=== PATIENT | female | born 1965 | race Caucasian/White ===

== ENCOUNTER 2016-08-03 17:20 | Emergency (ER) | payer BC ==
[2016-08-03 19:15] LABS: RED BLOOD COUNT 5.06 M/UL (4.00-5.10); WHITE BLOOD COUNT 4.7 K/UL (4.5-11.0)
[2016-08-03 19:19] LABS: BUN/CREATININE RATIO 28 (0-10)
== END 2016-08-03 23:46 | disposition home or self-care (01) ==
LOC: ER1 17:20
PROVIDERS: Emergency Medicine
DX: N30.01 Acute cystitis with hematuria (principal); K80.20 Calculus of gallbladder without cholecystitis without obstruction; N83.201 Unspecified ovarian cyst, right side; N83.202 Unspecified ovarian cyst, left side; E87.6 Hypokalemia
CPT/HCPCS: 36415; 80053; 81001; 83605; 83690; 84703; 85025; 87086; 96365; 96366; 96375; 96376; 99284; J1956; J2270; J2405; J7050; Q9962

== ENCOUNTER → 2020-06-20 | Outpatient (CLI) | payer OTHER ==
[~2020-06-20] MED LIST: AZELASTINE; AZELASTINE205.5 MCG/; BREZTRI AEROS10.7 GM INH; COLACE 100MG C100 MG PO; FLONASE 0.05% N16 GM; FLUTICASONE; HYDROCHLOROTHIA25 MG PO; HYDROCODON-ACE1 EAC6 PO; IBUPROFEN600 MG PO; MULTI-VITAMIN1 EAC1 PO; OMEPRAZOLE40 MG PO; PROBIOTIC1 EAC1 PO; SINGULAIR10 MG PO; VITAMIN D350 MCG PO; XYZAL5 MG PO
[2020-06-20 10:39] LABS: HEMOGLOBIN 14.6 gm/dl (12.3-15.3); RED BLOOD COUNT 4.9 M/UL (4.00-5.10); WHITE BLOOD COUNT 5.5 K/UL (4.5-11.0)
[2020-06-20 11:00] LABS: BUN/CREATININE RATIO 17 (0-10)
== END ==
LOC: OPSV2 09:00
PROVIDERS: Obstetrics & Gynecology
DX: Z01.818 Encounter for other preprocedural examination (principal); D21.9 Benign neoplasm of connective and other soft tissue, unspecified; R00.0 Tachycardia, unspecified; I10 Essential (primary) hypertension
CPT/HCPCS: 36415; 80053; 81001; 85025; 93005

== ENCOUNTER 2020-06-27 06:21 | Day surgery (SDC) | payer OTHER ==
[~2020-06-27] VITALS: Ht 160 cm; Wt 88.0 kg
[~2020-06-27 06:21] MED LIST changes: -AZELASTINE205.5 MCG/; -BREZTRI AEROS10.7 GM INH; -COLACE 100MG C100 MG PO; -FLONASE 0.05% N16 GM; -HYDROCODON-ACE1 EAC6 PO; -IBUPROFEN600 MG PO; -MULTI-VITAMIN1 EAC1 PO; -VITAMIN D350 MCG PO
[2020-06-27] MEDS ORDERED: BREZTRI AEROS10.7 GM INH (07:21)
[2020-06-27] MEDS ORDERED: COLACE 100MG C100 MG PO (07:39)
[2020-06-27] MEDS ORDERED: IBUPROFEN600 MG PO (07:39)
[2020-06-27] MEDS ORDERED: HYDROCODON-ACE1 EAC6 PO (07:39)
[2020-06-27] MEDS ORDERED: AZELASTINE205.5 MCG/ (16:14)
[2020-06-27] MEDS ORDERED: FLONASE 0.05% N16 GM (16:15)
[2020-06-27] MEDS ORDERED: VITAMIN D350 MCG PO (16:21)
[2020-06-27] MEDS ORDERED: MULTI-VITAMIN1 EAC1 PO (16:21)
[2020-06-28 03:53] LABS: HEMOGLOBIN 11.2 gm/dl (12.3-15.3)
== END 2020-06-28 11:20 | disposition home or self-care (01) ==
LOC: OR 06:21 → M/S 12:00 → OR 06-28 11:20
PROVIDERS: Obstetrics & Gynecology
DX: D25.9 Leiomyoma of uterus, unspecified (principal); N80.0 Endometriosis of uterus; D28.2 Benign neoplasm of uterine tubes and ligaments; K66.0 Peritoneal adhesions (postprocedural) (postinfection); N83.202 Unspecified ovarian cyst, left side; N83.201 Unspecified ovarian cyst, right side; G43.909 Migraine, unspecified, not intractable, without status migrainosus; D64.9 Anemia, unspecified; I10 Essential (primary) hypertension; R00.0 Tachycardia, unspecified; K21.9 Gastro-esophageal reflux disease without esophagitis; Z91.018 Allergy to other foods; Z91.010 Allergy to peanuts; Z79.899 Other long term (current) drug therapy
CPT/HCPCS: 36415; 74018; 84703; 85014; 85018; J0690; J1100; J1644; J2001; J2250; J2270; J2405; J2550; J2704; J2710; J2765; J2795; J3010; J7120

== ENCOUNTER 2020-11-19 17:00 | Inpatient (IN) | payer OTHER ==
[~2020-11-19] VITALS: Ht 160 cm; Wt 92.5 kg
[~2020-11-19 17:00] MED LIST changes: +AZELASTINE205.5 MCG/; +COLACE 100MG C100 MG PO; +FLONASE 0.05% N16 GM; +HYDROCODON-ACE1 EAC6 PO; +IBUPROFEN600 MG PO; +MULTI-VITAMIN1 EAC1 PO
[2020-11-19 18:47] LABS: HEMOGLOBIN 13.9 gm/dl (12.3-15.3); RED BLOOD COUNT 5.02 M/UL (4.00-5.10)
[2020-11-19 19:16] LABS: BUN/CREATININE RATIO 16 (0-10)
[2020-11-20 00:36] LABS: HEMOGLOBIN 12.2 gm/dl (12.3-15.3); RED BLOOD COUNT 4.4 M/UL (4.00-5.10); WHITE BLOOD COUNT 3.2 K/UL (4.5-11.0)
[2020-11-20 04:04] LABS: BUN/CREATININE RATIO 21 (0-10)
[2020-11-20] MEDS ORDERED: BREZTRI AEROS10.7 GM INH (07:21)
[2020-11-20] MEDS ORDERED: ALBUTEROL0.63 MG/3 INH (10:45)
[2020-11-20] MEDS ORDERED: HYDROCHLOROTHIA25 MG PO (10:46)
[2020-11-20] MEDS ORDERED: POTASSIUM CHLO20 ME1 PO (10:46)
[2020-11-20] MEDS ORDERED: OMEPRAZOLE40 MG PO (10:46)
[2020-11-20] MEDS ORDERED: MONTELUKAST SOD10 MG PO (10:47)
[2020-11-20] MEDS ORDERED: NASACORT16.9 ML (10:47)
[2020-11-20] MEDS ORDERED: MULTIVITAMIN1 EACH PO (10:54)
[2020-11-20] MEDS ORDERED: VITAMIN D325 MC6 PO (16:21)
[2020-11-21 03:12] LABS: HEMOGLOBIN 11.5 gm/dl (12.3-15.3); RED BLOOD COUNT 4.2 M/UL (4.00-5.10)
[2020-11-21 03:13] LABS: WHITE BLOOD COUNT 2.3 K/UL (4.5-11.0)
--- NOTE | 2020-11-21 05:23 | NUR ---
AT 0420, PRIMARY RN ASKED RESPIRATORY THERAPIST TO PLACE PT ON HFNC D/T O2 SAT 87-88 WITH REST AT 4.5 L/MIN NC. PT TOLERATED 10 L/MIN HFNC WELL UNTIL PT NEEDED TO USE BSC. PT NOW SATTING 90-91% ON 12 L/MIN HFNC. WCTM. PT ALSO GIVEN INCENTIVE SPIROMETER WITH INSTRUCTIONS ON HOW TO USE AND ADVISED TO LAY IN PRONE POSITION MUCH TOLERATED. WCTM
[2020-11-22 06:01] LABS: HEMOGLOBIN 12.2 gm/dl (12.3-15.3); RED BLOOD COUNT 4.4 M/UL (4.00-5.10); WHITE BLOOD COUNT 2.7 K/UL (4.5-11.0)
[2020-11-22 06:37] LABS: BUN/CREATININE RATIO 28 (0-10)
[2020-11-23 05:42] LABS: HEMOGLOBIN 12.7 gm/dl (12.3-15.3); RED BLOOD COUNT 4.66 M/UL (4.00-5.10); WHITE BLOOD COUNT 2.6 K/UL (4.5-11.0)
[2020-11-23 06:00] LABS: BUN/CREATININE RATIO 31 (0-10)
[2020-11-24 05:33] LABS: HEMOGLOBIN 12.5 gm/dl (12.3-15.3); RED BLOOD COUNT 4.49 M/UL (4.00-5.10)
[2020-11-24 05:34] LABS: WHITE BLOOD COUNT 5.1 K/UL (4.5-11.0)
[2020-11-24 06:05] LABS: BUN/CREATININE RATIO 39 (0-10)
[2020-11-25 05:53] LABS: HEMOGLOBIN 12.4 gm/dl (12.3-15.3); RED BLOOD COUNT 4.47 M/UL (4.00-5.10)
[2020-11-25 06:21] LABS: BUN/CREATININE RATIO 36 (0-10)
[2020-11-25 06:27] LABS: WHITE BLOOD COUNT 8.3 K/UL (4.5-11.0)
[2020-11-26 04:54] LABS: HEMOGLOBIN 12.2 gm/dl (12.3-15.3); RED BLOOD COUNT 4.44 M/UL (4.00-5.10); WHITE BLOOD COUNT 9.1 K/UL (4.5-11.0)
[2020-11-26 05:32] LABS: BUN/CREATININE RATIO 47 (0-10)
[2020-11-27 05:54] LABS: RED BLOOD COUNT 4.38 M/UL (4.00-5.10); WHITE BLOOD COUNT 9.6 K/UL (4.5-11.0)
[2020-11-27 06:13] LABS: BUN/CREATININE RATIO 51 (0-10)
[2020-11-28 04:54] LABS: HEMOGLOBIN 12.3 gm/dl (12.3-15.3); RED BLOOD COUNT 4.43 M/UL (4.00-5.10)
[2020-11-28 04:59] LABS: WHITE BLOOD COUNT 12.1 K/UL (4.5-11.0)
[2020-11-28 05:20] LABS: BUN/CREATININE RATIO 49 (0-10)
[2020-11-29 04:12] LABS: HEMOGLOBIN 12.5 gm/dl (12.3-15.3); RED BLOOD COUNT 4.57 M/UL (4.00-5.10)
[2020-11-29 04:14] LABS: WHITE BLOOD COUNT 15.5 K/UL (4.5-11.0)
[2020-11-29 04:26] LABS: BUN/CREATININE RATIO 45 (0-10)
[2020-11-30 05:15] LABS: HEMOGLOBIN 12.6 gm/dl (12.3-15.3); RED BLOOD COUNT 4.59 M/UL (4.00-5.10); WHITE BLOOD COUNT 18.3 K/UL (4.5-11.0)
[2020-11-30 05:37] LABS: BUN/CREATININE RATIO 39 (0-10)
--- NOTE | 2020-11-30 20:49 | NUR ---
1850: PATIENT CALLED THIS NURSE IN THE ROOM AND REQUESTED SOMETHING TO EAT AND TO BE PLACED ON AIRVO. PATIENT BEGAN DESATURATING BUT STILL REQUESTED NOT TO BE PLACED BACK ON BIPAP. THIS NURSE PLACED 100% NON-REBREATHER ON TOP OF THE AIRVO. OXYGEN SATURATIONS STILL REMAINED LOW SO PATIENT PLACED BACK ON BIPAP. OXYGEN SATURATION 85% ON 100% BIPAP 1905: DR. CASTAÑEDA NOTIFED OF PATIENT CONDITION 1925: MD AT [facility]; 20MG OF ETOMIDATE ADMINISTERED PER MD ORDER 192: 50 MG OF ZACH ADMINISTERED PER MD ORDER 1938: PATIENT INTUBATED; 7.5 ET TUBE, 23 @ TEETH, VENT SETTINGS AC 28, TV 480, FIO2 100%, PEEP 14 1942: DIPRIVAN STARTED AT 25MCG/KG/MIN PER MD ORDER 1945: ZEMURON @ 5MG/ML 2027: PATIENT PRONED
[2020-12-01 09:17] LABS: HEMOGLOBIN 11.1 gm/dl (12.3-15.3)
[2020-12-01 09:20] LABS: RED BLOOD COUNT 3.97 M/UL (4.00-5.10); WHITE BLOOD COUNT 24.8 K/UL (4.5-11.0)
[2020-12-01 17:47] LABS: HEMOGLOBIN 11.5 gm/dl (12.3-15.3); RED BLOOD COUNT 4.12 M/UL (4.00-5.10); WHITE BLOOD COUNT 24.9 K/UL (4.5-11.0)
--- NOTE | 2020-12-01 19:44 | NUR ---
RECEIVED CRITICAL TROPONIN FROM LAB OF 36.[address] BARROSO OF RESULTS AT 1701 NEW ORDERS RECEIVED AND PLACED IN [facility]. AT [address]19 DR. BARROSO NOTIFIED OF TACHYCARDIA AND NEW ORDERS RECEIVED. AT 1639 DR. GATICA WAS CALLED AND MESSAGE LEFT FOR NEW CONSULT
[2020-12-02 06:55] LABS: HEMOGLOBIN 10.6 gm/dl (12.3-15.3); RED BLOOD COUNT 3.84 M/UL (4.00-5.10); WHITE BLOOD COUNT 26.1 K/UL (4.5-11.0)
--- NOTE | 2020-12-02 10:34 | NUR ---
[address] SMALL OF DECREASING TROPONIN.
[2020-12-03 09:06] LABS: HEMOGLOBIN 10.2 gm/dl (12.3-15.3); RED BLOOD COUNT 3.64 M/UL (4.00-5.10); WHITE BLOOD COUNT 24.8 K/UL (4.5-11.0)
[2020-12-03 13:44] LABS: HEMOGLOBIN 9.5 gm/dl (12.3-15.3); RED BLOOD COUNT 3.34 M/UL (4.00-5.10); WHITE BLOOD COUNT 22.5 K/UL (4.5-11.0)
--- NOTE | 2020-12-03 13:57 | NUR ---
AT [address]150 DR. SMALL NOTIFIED OF HEMATURIA AND ORDER TO HOLD HEPARIN DRIP RECEIVED.
[2020-12-04 03:33] LABS: RED BLOOD COUNT 2.91 M/UL (4.00-5.10); WHITE BLOOD COUNT 14.1 K/UL (4.5-11.0)
[2020-12-04 09:52] LABS: HEMOGLOBIN 8.2 gm/dl (12.3-15.3); RED BLOOD COUNT 2.96 M/UL (4.00-5.10); WHITE BLOOD COUNT 12.8 K/UL (4.5-11.0)
[2020-12-05 09:56] LABS: RED BLOOD COUNT 2.84 M/UL (4.00-5.10); WHITE BLOOD COUNT 11.4 K/UL (4.5-11.0)
[2020-12-06 05:13] LABS: HEMOGLOBIN 8.3 gm/dl (12.3-15.3); RED BLOOD COUNT 2.92 M/UL (4.00-5.10)
[2020-12-06 05:19] LABS: WHITE BLOOD COUNT 14.9 K/UL (4.5-11.0)
[2020-12-07 03:56] LABS: RED BLOOD COUNT 2.84 M/UL (4.00-5.10); WHITE BLOOD COUNT 13.8 K/UL (4.5-11.0)
[2020-12-08 05:33] LABS: HEMOGLOBIN 7.1 gm/dl (12.3-15.3); WHITE BLOOD COUNT 11.7 K/UL (4.5-11.0)
[2020-12-08 05:34] LABS: RED BLOOD COUNT 2.51 M/UL (4.00-5.10)
[2020-12-08 15:10] LABS: HEPARIN INDUCED PLATELET AB 0.151 OD (0.000-0.400)
[2020-12-08 20:10] LABS: ADAMTS13 ACTIVITY 59.4 % (>66.8)
[2020-12-09 05:51] LABS: WHITE BLOOD COUNT 13.2 K/UL (4.5-11.0)
[2020-12-09 06:53] LABS: RED BLOOD COUNT 2.78 M/UL (4.00-5.10)
[2020-12-10 04:52] LABS: HEMOGLOBIN 7.5 gm/dl (12.3-15.3); RED BLOOD COUNT 2.69 M/UL (4.00-5.10); WHITE BLOOD COUNT 16.1 K/UL (4.5-11.0)
[2020-12-10 07:11] LABS: HBSAG SCREEN Negative (Negative); HEP A AB, IGM Negative (Negative); HEP B CORE AB, IGM Negative (Negative); HEP C VIRUS AB <0.1 (0.0-0.9)
[2020-12-10 15:09] LABS: HEMOGLOBIN 7.8 gm/dl (12.3-15.3)
[2020-12-11 05:38] LABS: HEMOGLOBIN 7.1 gm/dl (12.3-15.3); RED BLOOD COUNT 2.45 M/UL (4.00-5.10); WHITE BLOOD COUNT 12.8 K/UL (4.5-11.0)
[2020-12-12 05:43] LABS: WHITE BLOOD COUNT 12.9 K/UL (4.5-11.0)
[2020-12-12 05:48] LABS: RED BLOOD COUNT 2.88 M/UL (4.00-5.10)
[2020-12-13 05:46] LABS: RED BLOOD COUNT 2.81 M/UL (4.00-5.10); WHITE BLOOD COUNT 12.7 K/UL (4.5-11.0)
--- NOTE | 2020-12-13 05:59 | NUR ---
12/12/20..2230: DR. BOJORQUEZ ON FLOOR, SPOKE ABOUT PT RESIDUAL, INFORMED MD OF DARK COFFEE GROUND RESIDUAL AND HOOKED TO SUCTION AND TURNED TO BRIGHT RED BLOOD. MD ADVISED TO KEEP TUBE FEED OFF AT THIS TIME AND TO NOT KEEP PT HOOKED TO SUCTION. MD ADVISED TO MAKE SURE PT HAS PROTONIX BID ON APR (SEE MAR)
[2020-12-14 05:31] LABS: HEMOGLOBIN 7.3 gm/dl (12.3-15.3); RED BLOOD COUNT 2.66 M/UL (4.00-5.10); WHITE BLOOD COUNT 11.5 K/UL (4.5-11.0)
--- NOTE | 2020-12-14 19:20 | NUR ---
AT [address] DR. BOJORQUEZ ON THE FLOOR, SPOKE TO DR. BOJORQUEZ IN REGARDS TO PT RECEIVING HEPARIN PER ORDER ON APR, SPOKE ABOUT PT PLATELET COUNTS AT 79, ULCER PT RECENTLY WAS DIAGNOSED WITH, PT BEING IN DIC AND THE COFFEE GROUND BLOOD TINGED CONTENT BEING SUCTIONED FROM PTS OG. DR. BOJORQUEZ ADVISED TO GIVE THE HEPARIN PER ORDER ON APR PT WAS DIAGNOSED LAST WEEK WITH TWO DVTS IN LOWER EXTS, BENEFITS OUTWAYED THE RISKS.
[2020-12-15 04:12] LABS: HEMOGLOBIN 7.9 gm/dl (12.3-15.3); RED BLOOD COUNT 2.91 M/UL (4.00-5.10); WHITE BLOOD COUNT 9.7 K/UL (4.5-11.0)
[2020-12-16 05:45] LABS: HEMOGLOBIN 7.1 gm/dl (12.3-15.3)
[2020-12-16 05:46] LABS: RED BLOOD COUNT 2.54 M/UL (4.00-5.10); WHITE BLOOD COUNT 12.7 K/UL (4.5-11.0)
[2020-12-16 08:11] LABS: VITAMIN D, 25-HYDROXY 14.7 ng/mL (30.0-100.0)
[2020-12-17 05:28] LABS: RED BLOOD COUNT 2.7 M/UL (4.00-5.10)
[2020-12-17 05:32] LABS: WHITE BLOOD COUNT 16.5 K/UL (4.5-11.0)
[2020-12-18 05:19] LABS: HEMOGLOBIN 7.9 gm/dl (12.3-15.3); RED BLOOD COUNT 2.69 M/UL (4.00-5.10); WHITE BLOOD COUNT 14.4 K/UL (4.5-11.0)
[2020-12-19 03:40] LABS: ACINETOBACTER BAUMANNII Not Detected (Negative); CANDIDA ALBICANS Not Detected (Negative); CANDIDA KRUSEI Not Detected (Negative); CANDIDA TROPICALIS Not Detected (Negative); ESCHERICHIA COLI Not Detected (Negative); HAEMOPHILUS INFLUENZAE Not Detected (Negative); KLEBSIELLA OXYTOCA Not Detected (Negative); KLEBSIELLA PNEUMONIAE Not Detected (Negative); KPC-CARBAPENEM-RESISTANCE GENE Not Detected (Negative); PROTEUS Not Detected (Negative); PSEUDOMONAS AERUGINOSA Not Detected (Negative); SERRATIA MARCESANS Not Detected (Negative); STAPHYLOCOCCUS Not Detected (Negative); STAPHYLOCOCCUS AUREUS Not Detected (Negative); STREP AGALACTIAE (GROUP B) Not Detected (Negative); STREP PYOGENES (GROUP A) Not Detected (Negative); STREPTOCOCCUS Not Detected (Negative); mecA (METHICILLIN RESIST GENE Not Detected (Negative); vanA/B (VANCOMYCIN RESIST GENE Not Detected (Negative)
[2020-12-19 04:56] LABS: ENTEROCOCCUS DETECTED (Negative)
[2020-12-19 08:25] LABS: HEMOGLOBIN 7.2 gm/dl (12.3-15.3); RED BLOOD COUNT 2.56 M/UL (4.00-5.10); WHITE BLOOD COUNT 17.5 K/UL (4.5-11.0)
[2020-12-20 05:28] LABS: HEMOGLOBIN 7.8 gm/dl (12.3-15.3); RED BLOOD COUNT 2.75 M/UL (4.00-5.10); WHITE BLOOD COUNT 16.5 K/UL (4.5-11.0)
--- NOTE | 2020-12-20 13:33 | NUR ---
DR. SMALL NOTIFIED ABOUT POTASSIUM OF 3.3. HE TOLD ME NOT TO REPLACE THE POTASSIUM.
--- NOTE | 2020-12-20 14:52 | NUR ---
DISCUSSED DIETARY NEEDS WITH THE DIETITIAN AND EXPLAINED THE REASON FOR THE CURRENT HOLD ON TUBE FEEDING. DR. SMALL AND DR. LESTER HAS BEEN NOTIFIED OF THE NEED FOR TUBE FEEDING AND THEY BOTH AGREED TO START NEPHRO AT 10 ML/HR TO GIVE NUTRITION AND TO CONTINUE WITH OUR INTERVENTIONS FOR THE CONSTIPATION
[2020-12-20 16:29] LABS: RED BLOOD COUNT 2.36 M/UL (4.00-5.10); WHITE BLOOD COUNT 11.4 K/UL (4.5-11.0)
[2020-12-20 16:32] LABS: HEMOGLOBIN 6.8 gm/dl (12.3-15.3)
[2020-12-21 02:32] LABS: HEMOGLOBIN 8.2 gm/dl (12.3-15.3); WHITE BLOOD COUNT 9.7 K/UL (4.5-11.0)
[2020-12-21 02:42] LABS: RED BLOOD COUNT 2.83 M/UL (4.00-5.10)
[2020-12-21 08:31] LABS: HEMOGLOBIN 7.6 gm/dl (12.3-15.3); RED BLOOD COUNT 2.66 M/UL (4.00-5.10); WHITE BLOOD COUNT 8.9 K/UL (4.5-11.0)
--- NOTE | 2020-12-21 12:07 | NUR ---
YVETTE PLACED TO CONNECT TO INTERMITTEN LOW WALL SUCTION PER DR. Cruz
[2020-12-21 13:52] LABS: RED BLOOD COUNT 2.76 M/UL (4.00-5.10)
[2020-12-21 17:51] LABS: HEMOGLOBIN 8.3 gm/dl (12.3-15.3); RED BLOOD COUNT 2.9 M/UL (4.00-5.10); WHITE BLOOD COUNT 9.9 K/UL (4.5-11.0)
[2020-12-22 04:36] LABS: HEMOGLOBIN 8.1 gm/dl (12.3-15.3); RED BLOOD COUNT 2.8 M/UL (4.00-5.10); WHITE BLOOD COUNT 8.4 K/UL (4.5-11.0)
--- NOTE | 2020-12-22 11:58 | NUR ---
DR. MONTOYA ORDERS NEPHRO TUBE FEED AT 10 ML/HR
[2020-12-23 05:23] LABS: HEMOGLOBIN 8.5 gm/dl (12.3-15.3); RED BLOOD COUNT 2.94 M/UL (4.00-5.10)
[2020-12-23 05:33] LABS: WHITE BLOOD COUNT 11.3 K/UL (4.5-11.0)
[2020-12-24 07:48] LABS: HEMOGLOBIN 8.3 gm/dl (12.3-15.3); RED BLOOD COUNT 2.92 M/UL (4.00-5.10)
[2020-12-24 07:52] LABS: WHITE BLOOD COUNT 15.2 K/UL (4.5-11.0)
[2020-12-25 05:00] LABS: RED BLOOD COUNT 2.76 M/UL (4.00-5.10); WHITE BLOOD COUNT 11.4 K/UL (4.5-11.0)
[2020-12-26 04:47] LABS: HEMOGLOBIN 7.7 gm/dl (12.3-15.3); RED BLOOD COUNT 2.63 M/UL (4.00-5.10); WHITE BLOOD COUNT 11.6 K/UL (4.5-11.0)
--- NOTE | 2020-12-26 08:34 | NUR ---
PT VOIDED X1 POST LAINEZ REMOVAL.
[2020-12-26 15:56] LABS: HEMOGLOBIN 12.1 gm/dl (12.3-15.3); RED BLOOD COUNT 3.91 M/UL (4.00-5.10); WHITE BLOOD COUNT 15.9 K/UL (4.5-11.0)
[2020-12-27 05:26] LABS: HEMOGLOBIN 7.8 gm/dl (12.3-15.3); RED BLOOD COUNT 2.72 M/UL (4.00-5.10); WHITE BLOOD COUNT 15.5 K/UL (4.5-11.0)
--- NOTE | 2020-12-27 13:17 | NUR ---
Pt went to OR at approximately 1130, accompanied by OR staff. pt returned at approximately 1230. Bedside report recieved from Dr. Allred. Per Dr. Allred, pt had permacath placed, ok to pull temporary HD cath and restart TF as ordered.
--- NOTE | 2020-12-27 17:39 | NUR ---
PER MD REQUEST TEMPORARY HD CATH REMOVED. PRESSURE HELD FOR 5 MINUTES, GAUZE DRESSING AND TAPE APPLIED. NO HEMATOMA NOTED AT THIS TIME. NO BLEEDING NOTED AT THIS TIME. PT TOLERATED WELL. DRESSING ON NEW PERMACATH CHANGED PER MD REQUEST
[2020-12-28 05:28] LABS: HEMOGLOBIN 8.2 gm/dl (12.3-15.3); RED BLOOD COUNT 2.84 M/UL (4.00-5.10)
[2020-12-28 05:30] LABS: WHITE BLOOD COUNT 22.9 K/UL (4.5-11.0)
[2020-12-29 05:21] LABS: HEMOGLOBIN 7.4 gm/dl (12.3-15.3); RED BLOOD COUNT 2.57 M/UL (4.00-5.10); WHITE BLOOD COUNT 17.4 K/UL (4.5-11.0)
--- NOTE | 2020-12-30 02:24 | NUR ---
0130-PATIENT BREATHING HEAVY, O2 SAT DROPPED INTO 80'S. NOTIFIED RESPIRATORY. PATIENT TRACH SUCTIONED AND PLACED BACK ON TRACH COLLAR. PATIENT O2 SAT 92%
--- NOTE | 2020-12-30 04:13 | NUR ---
0330-PATIENT DESAT 88% RESPIRATORY NOTIFIED. PATIENT ON TRACH COLLAR. RESPIRATORY LAVAGED PATIENT AND PLACED HER ON VENT SPONTEOUS PRESSURE CONTROL. PATIENT SAT 94%. WCM.
[2020-12-30 05:15] LABS: HEMOGLOBIN 7.3 gm/dl (12.3-15.3); RED BLOOD COUNT 2.48 M/UL (4.00-5.10)
[2020-12-30 05:21] LABS: WHITE BLOOD COUNT 26.8 K/UL (4.5-11.0)
--- NOTE | 2020-12-30 08:26 | NUR ---
DR. SMALL NOTIFED OF ABG RESULTS. ODERED 1 AMP OF BICARB AND PLACED HER BACK ON ASSIST CONTROL VENTILATOR SETTING.
[2020-12-31 04:50] LABS: RED BLOOD COUNT 2.23 M/UL (4.00-5.10); WHITE BLOOD COUNT 15.3 K/UL (4.5-11.0)
[2020-12-31 04:51] LABS: HEMOGLOBIN 6.2 gm/dl (12.3-15.3)
[2020-12-31 18:43] LABS: HEMOGLOBIN 6.1 gm/dl (12.3-15.3)
== END 2020-12-31 22:41 | DRG 4 ==
LOC: ER1 17:00 → CDU 23:05 → CCU 23:05 → M/S 23:05 → CCU 11-22 20:20
PROVIDERS: Internal Medicine; Internal Medicine Nephrology; Internal Medicine Pulmonary Disease; Physician Assistant; Student in an Organized Health Care Education/Training Program; Surgery; ADMIT Internal Medicine
PROC: XW033E5 Introduction of Remdesivir Anti-infective into Peripheral Vein, Percutaneous Approach, New Technology Group 5 (ICD-10-PCS; 2020-11-19)
PROC: 3E0333Z Introduction of Anti-inflammatory into Peripheral Vein, Percutaneous Approach (ICD-10-PCS; 2020-11-19)
PROC: 8E0ZXY6 Isolation (ICD-10-PCS; 2020-11-19)
PROC: XW033H5 Introduction of Tocilizumab into Peripheral Vein, Percutaneous Approach, New Technology Group 5 (ICD-10-PCS; 2020-11-20)
PROC: 5A09557 Assistance with Respiratory Ventilation, Greater than 96 Consecutive Hours, Continuous Positive Airway Pressure (ICD-10-PCS; 2020-11-22)
PROC: 5A1955Z Respiratory Ventilation, Greater than 96 Consecutive Hours (ICD-10-PCS; 2020-11-30)
PROC: 0BH18EZ Insertion of Endotracheal Airway into Trachea, Via Natural or Artificial Opening Endoscopic (ICD-10-PCS; 2020-11-30)
PROC: 3E033XZ Introduction of Vasopressor into Peripheral Vein, Percutaneous Approach (ICD-10-PCS; 2020-11-30)
PROC: 0DH67UZ Insertion of Feeding Device into Stomach, Via Natural or Artificial Opening (ICD-10-PCS; 2020-12-02)
PROC: 3E0G76Z Introduction of Nutritional Substance into Upper GI, Via Natural or Artificial Opening (ICD-10-PCS; 2020-12-02)
PROC: 30233N1 Transfusion of Nonautologous Red Blood Cells into Peripheral Vein, Percutaneous Approach (ICD-10-PCS; 2020-12-16)
PROC: 0B110F4 Bypass Trachea to Cutaneous with Tracheostomy Device, Open Approach (ICD-10-PCS; principal; 2020-12-17 09:30)
PROC: 05HN33Z Insertion of Infusion Device into Left Internal Jugular Vein, Percutaneous Approach (ICD-10-PCS; 2020-12-23)
PROC: B544ZZA Ultrasonography of Left Jugular Veins, Guidance (ICD-10-PCS; 2020-12-23)
PROC: 5A1D70Z Performance of Urinary Filtration, Intermittent, Less than 6 Hours Per Day (ICD-10-PCS; 2020-12-24)
PROC: 5A1D70Z Performance of Urinary Filtration, Intermittent, Less than 6 Hours Per Day (ICD-10-PCS; 2020-12-26)
PROC: 3E033XZ Introduction of Vasopressor into Peripheral Vein, Percutaneous Approach (ICD-10-PCS; 2020-12-30)
DX: A41.81 Sepsis due to Enterococcus (principal); U07.1 COVID-19; J12.82 Pneumonia due to coronavirus disease 2019; J80 Acute respiratory distress syndrome; R65.21 Severe sepsis with septic shock; N17.0 Acute kidney failure with tubular necrosis; D65 Disseminated intravascular coagulation [defibrination syndrome]; J15.9 Unspecified bacterial pneumonia; G93.41 Metabolic encephalopathy; I21.4 Non-ST elevation (NSTEMI) myocardial infarction; K25.4 Chronic or unspecified gastric ulcer with hemorrhage; M31.19 Other thrombotic microangiopathy; R57.0 Cardiogenic shock; I82.441 Acute embolism and thrombosis of right tibial vein; I82.431 Acute embolism and thrombosis of right popliteal vein; E87.2 Acidosis; E87.1 Hypo-osmolality and hyponatremia; D62 Acute posthemorrhagic anemia; I12.0 Hypertensive chronic kidney disease with stage 5 chronic kidney disease or end stage renal disease; N18.5 Chronic kidney disease, stage 5; Z23 Encounter for immunization; D63.1 Anemia in chronic kidney disease; E11.22 Type 2 diabetes mellitus with diabetic chronic kidney disease; L89.320 Pressure ulcer of left buttock, unstageable; E83.51 Hypocalcemia; I48.0 Paroxysmal atrial fibrillation; I07.1 Rheumatic tricuspid insufficiency; A41.89 Other specified sepsis; E66.01 Morbid (severe) obesity due to excess calories; E87.6 Hypokalemia; K59.00 Constipation, unspecified; J20.9 Acute bronchitis, unspecified; F41.9 Anxiety disorder, unspecified; E87.5 Hyperkalemia; D69.59 Other secondary thrombocytopenia; T45.515A Adverse effect of anticoagulants, initial encounter; R31.29 Other microscopic hematuria; R73.9 Hyperglycemia, unspecified; Z82.49 Family history of ischemic heart disease and other diseases of the circulatory system; Z99.2 Dependence on renal dialysis; Z90.710 Acquired absence of both cervix and uterus; Z90.49 Acquired absence of other specified parts of digestive tract; Z90.89 Acquired absence of other organs; Z79.01 Long term (current) use of anticoagulants
CPT/HCPCS: ECHO; 36415; 36430; 36600; 71045; 74018; 77001; 80048; 80053; 80074; 80076; 80202; 81001; 82140; 82272; 82330; 82550; 82553; 82570; 82652; 82728; 82803; 82962; 83010; 83605; 83615; 83735; 83874; 83880; 84100; 84132; 84156; 84300; 84466; 84478; 84484; 85007; 85014; 85018; 85025; 85027; 85045; 85379; 85384; 85397; 85610; 85730; 86140; 86850; 86870; 86900; 86901; 86902; 86905; 86920; 86922; 87040; 87077; 87081; 87150; 87186; 90935; 90937; 93005; 93306; 93970; 93971; 94002; 94003; 94640; 94660; 94664; 94760; 96374; 96375; 97110; 97110-GP-CQ; 97116-GP-CQ; 97161; 97164; 97167; 97530; 99285; A6212; C1750; C1752; C1769; C9113; G0378; J0295; J0456; J0636; J0690; J0692; J0696; J1100; J1642; J1644; J1650; J1940; J2185; J2250; J2370; J2704; J2765; J2930; J2997; J3010; J3246; J3370; J3475; J3480; J7030; J7040; J7050; J7070; J7120; P9016; P9047; Q0249; Q9967; U0002

== ENCOUNTER → 2021-07-22 | Outpatient (CLI) | payer BC ==
[~2021-07-22] MED LIST changes: +ALBUTEROL0.63 MG/3 INH; +BREZTRI AEROS10.7 GM INH; +MONTELUKAST SOD10 MG PO; +MULTIVITAMIN1 EACH PO; +NASACORT16.9 ML; +POTASSIUM CHLO20 ME1 PO; +VITAMIN D325 MC6 PO
== END ==
LOC: HEART 5 08:30
DX: I42.9 Cardiomyopathy, unspecified (principal); I10 Essential (primary) hypertension; R07.9 Chest pain, unspecified; R00.2 Palpitations; R06.02 Shortness of breath; I34.0 Nonrheumatic mitral (valve) insufficiency
CPT/HCPCS: 93306